=== PATIENT | female | born 1970 | race Caucasian/White ===

== ENCOUNTER 2022-06-27 01:46 | Day surgery (SDC) | payer OTHER, SELFPAY ==
[2022-06-24 09:49] VITALS: BMI 22.8
--- NOTE | 2022-06-24 10:06 | PC.NURSE ---
Report to the Outpatient Waiting Room, entrance under the green pavilion located off [facility], at time 0730 on date 06/27/22. OR Time: 0930. - You and your visitor will be asked to self-screen and do not enter if you have any COVID symptoms. - Only one visitor and NO children visitors are allowed at this time. - The patient visitor is requested to leave or wait in car when not with patient due to restrictions. - A mask is required within the hospital. Patients may have clear liquids (water, carbonated beverages, clear teas, apple juice) until 3 hours prior to surgery with a maximum of 20 ounces. - No food from midnight until time of surgery Take the following medications with a SIP of water the morning of surgery: NONE Medications to discontinue per physician: VITAMINS/SUPPLEMENTS Date to take last dose: 06/24/22 Please no make-up, nail sri [place]ankan, hairspray, perfume, deodorant, or body powder the day of surgery. No jewelry (including any body piercings) or valuables the day of surgery, leave them at home. Please take a shower or bath the night before, or the morning of, surgery with an antibacterial soap. Wear comfortable, loose fitting clothing. - Jewelry must be removed prior to entering the operating room. Rings and piercings that are not removed may be cut off. - The hospital will not accept responsibility for valuables. - Please leave all valuables, including medications, at home the day of surgery. If you are going home after surgery, a licensed national dedicated truck driver must drive you home. - NO public transportation without another adult. - We recommend that an adult stay with you for 24 hours following discharge. - We also recommend that you do not drive, make important decision, drink alcoholic beverages, or take any drugs that were not prescribed by your health care provider for at least 24 hours after your discharge time. Follow any additional instructions given to you from your surgeon. If you or anyone in your household have experienced Covid symptoms in the past week, please notify your surgeon or the nurse liaison at the phone number below for possible testing. Telephone instructions given to PT - TEJA AREVALO and asked if any additional questions and then verbalized understanding. Patient advised to call surgeon office or pre surgery nurse liaison [phone] if any additional questions.
--- NOTE | 2022-06-26 15:39 | P.PNAN_ITS ---
Anes - Initial Pre Proc Eval Procedure: Operation Date: 06/27/22 09:30 Proposed Procedures p Left Ureteral and Renal Extracorporeal Shock Wave Lithotripsy - Rip Holguin MD Date/Time: 06/26/22 15:39 Surgeon: Rip Holguin MD Pre Op Diagnosis: ureteral & renal calculus Patient Data Age: 52 Gender: F Height: 1.75 m Weight: 70.31 kg Allergies Allergy/AdvReac Type Severity Reaction Status Date / Time hydrocodone [From Vicodin] Allergy Other Verified 06/27/22 08:30 ketorolac [From Toradol] Allergy Migraine Verified 06/27/22 08:30 sulfamethoxazole Allergy Migraine Verified 06/27/22 08:30 [From Bactrim] tramadol Allergy Migraine Verified 06/27/22 08:30 trimethoprim [From Bactrim] Allergy Migraine Verified 06/27/22 08:30 Home Medications Medication Instructions Recorded Confirmed Type amitriptyline 25 mg tablet 25 mg PO HS 06/24/22 06/27/22 History cholestyramine (with sugar) 4 gram 1 ea PO DAILY 06/24/22 06/27/22 History powder for susp in a packet escitalopram oxalate 5 mg tablet 5 mg PO HS 06/24/22 06/27/22 History (Lexapro) montelukast 10 mg tablet 10 mg PO HS 06/24/22 06/27/22 History omeprazole 20 mg capsule,delayed 20 mg PO HS 06/24/22 06/27/22 History release potassium citrate 10 mEq (1,080 10 meq PO BID 06/24/22 06/27/22 History mg) tablet,extended release sumatriptan succinate 100 mg tablet 100 mg PO ONCE PRN Migraine 06/24/22 06/27/22 History Headache tamsulosin 0.4 mg capsule 0.4 mg PO HS 06/24/22 06/27/22 History Patient hx anesthesia problems: none Family hx anesthesia problems: none Results Review: All pre-operative results and documents have been reviewed as part of the pre- operative evaluation. PMFSH Past Medical History Medical History Anxiety Chronic GERD Depression PONV (postoperative nausea and vomiting) Smoker Social History Social History Smoking packs per day: 0.5 Smoking cigarettes per day: 10.0 Years smoked: 30 Smoking pack-years: 15.00 Smoking status: Current every day smoker Tobacco type: cigarettes Alcohol intake: never Substance use: never Substance use type: does not use Living arrangements: with family Spiritual care concerns: No Anes - Eval Final PreProcedure Day of Procedure 06/26/22 15:39 Patient weight: normal Heart: regular rate and rhythm Lungs: clear to auscultation and normal air movement Airway: Mallampati scale class II Neurological: alert and oriented Last oral intake: >/= 8 hours ASA classification: II Emergent: no Anesthetic plan: proceed Anesthesia type and monitoring: general LMA Results Review: All pre-operative results and documents have been reviewed as part of the pre- operative evaluation. Informed Consent: The patient's anesthetic plan and its attendant risks and benefits were discussed with the patient/family/POA. Questions were solicited and answers provided to the satisfaction of the patient/family/POA.
[2022-06-27] VITALS (8 sets, daily range): BP systolic 103–123; BP diastolic 57–62; PULSE 72–82; RESP 12–20; TEMP 36.2–36.4; O2SAT 93–100
--- NOTE | ~2022-06-27 | CT_ITS ---
EXAMINATION: CT abdomen pelvis wo con DATE: 06/27/2022 08:24 INDICATION: Left renal and ureteral calculi TECHNIQUE: Computed tomography (CT) of the abdomen and pelvis was performed without intravenous contr ast. The dose-length product (DLP) was 180.30 mGy-cm. Automated exposure control and iterative recons truction technique were employed. COMPARISON: None FINDINGS: Minimal dependent atelectasis is present in the lung bases. The heart size is normal. Bilat eral breast implants are noted. The gallbladder is surgically absent. The liver, spleen, pancreas, an d adrenal glands are normal. There are multiple stones of the left kidney. The largest measures 4 mm in the upper pole. There are multiple stones of the right kidney. The largest measures 5 mm in the mi d kidney. There is a 3 mm stone at the left ureterovesicular junction. Multiple phleboliths are noted in the pelvis. No pathologically enlarged abdominal or pelvic lymph nodes are identified. There is n o free intraperitoneal gas or evidence of bowel obstruction. IMPRESSION: 1. 3 mm stone at the left ureterovesicular junction. 2. Nonobstructing bilateral nephrolithiasis. Reviewed, dictated and finalized at location A.
--- NOTE | ~2022-06-27 | XR_ITS ---
EXAMINATION: XR abdomen/kub 1V DATE: 06/27/2022 07:20 INDICATION: Kidney stone. TECHNIQUE: A supine view of the abdomen on 2 radiographs was obtained. COMPARISON: None. FINDINGS: There are no dilated loops of bowel. There is a moderate volume of stool in the colon. Surg ical clips in the right upper quadrant are likely from cholecystectomy. The kidneys are obscured by b owel. There are calcifications in the pelvis. IMPRESSION: 1. Kidneys obscured by bowel. 2. Calcifications in the pelvis, likely all or almost all of which are phleboliths. Distal ureteral s tone cannot be excluded. Reviewed, dictated and finalized at location A. IMPRESSION: 1. Kidneys obscured by bowel. 2. Calcifications in the pelvis, likely all or almost all of which are phleboli ths. Distal ureteral stone cannot be excluded.
[2022-06-27] MEDS: LACTATED RINGERS 1,000 ML 30 ML IV CONT (08:32)
[2022-06-27 08:38] LABS: Partial Thromboplastin Time 31.9 SECONDS (22.3-36.8)
--- NOTE | 2022-06-27 08:45 | WPDHPUPDATE1 ---
History and Physical Update Update Date/Time: 06/27/22 08:45 History and Physical has been reviewed, including an updated exam of the patient. There are NO changes in the patient's condition. Risks, benefits, and alternatives have been discussed and questions answered. Patient agrees to proceed with procedure. Proceed with lithotripsy of distal left ureteral calculus and left renal calculi
[2022-06-27] MEDS: ceFAZolin 2 GM/D5W 50 ML 2 GM/50 ML BAG IVPB (10:10)
--- NOTE | 2022-06-27 11:19 | W.PM.PROC2 ---
Procedure Note - Detailed Date of Procedure 06/27/22 Pre-op Diagnosis Left ureteral & renal calculus Post-op Diagnosis Same Procedure Performed Lithotripsy of distal left ureteral calculus as well as left upper pole calculi Surgeon Rip Holguin MD Anesthesia General Description of Procedure Patient is taken to the operative suite correctly identified. Once anesthesia was obtained the distal left ureteral calculus was visualized both planes. Three thousand shocks were given the stone. We then repositioned to 2 upper pole stones on the left. We gave an additional 2500 shocks between the 2 stones. Patient tolerated procedure well without any complications and was taken recovery stable condition. She will follow up with her original urologist in 7-10 days with KUB. Drains No Packing No Pathology None sent Complications No immediate complications Condition Stable Disposition PACU
[2022-06-27] MEDS: fentaNYL CITRATE INJ (*CRX) 100 MCG/2 ML VIAL 25 MCG IV PUSH ×2 (11:54→11:57)
[2022-06-27] MEDS: oxyCODONE HCL (*CRX) 5 MG TAB IR PO (13:03)
== END 2022-06-27 13:27 | disposition home or self-care (01) ==
PROVIDERS: Visit Provider Urology
PROC: (CPT 50590; principal; 2022-06-27 09:30)
DX: N20.2 Calculus of kidney with calculus of ureter (principal); K21.9 Gastro-esophageal reflux disease without esophagitis; F41.9 Anxiety disorder, unspecified; F32.A Depression, unspecified; F17.210 Nicotine dependence, cigarettes, uncomplicated
CPT/HCPCS: 50590; 36415; 74018; 74176; 85730; A9270; J0690; J1100; J2250; J2370; J2405; J2704; J3010; J7120